=== PATIENT | male | born 1945 | race Caucasian/White ===

== ENCOUNTER → 2017-02-05 | Outpatient (CLI) | payer OTHER ==
[~2017-02-05] MED LIST: CHOL100010 PO; CMD5 PO; METO25TA56 PO
[2017-02-05 18:21] LABS: BLOOD UREA NITROGEN 18 mg/dl (7-18); BUN/CREATININE RATIO 18.7 (10-20); CALCIUM 8.8 mg/dl (8.5-10.1); CARBON DIOXIDE 29 mmol/L (21-32); CHLORIDE 105 mmol/L (98-107); CREATININE 0.96 mg/dl (0.60-1.40); GLUCOSE 91 mg/dl (70-99); POTASSIUM 4.2 mmol/L (3.5-5.1); SODIUM 140 mmol/L (136-145)
== END | disposition home or self-care (01) ==
LOC: C.LAB 16:52
PROVIDERS: ATTEND Internal Medicine Geriatric Medicine
DX: I10 Essential (primary) hypertension (principal)

== ENCOUNTER → 2018-03-01 | Outpatient (CLI) | payer OTHER ==
[2018-03-01 17:50] LABS: BLOOD UREA NITROGEN 17 mg/dl (7-18); CARBON DIOXIDE 28 mmol/L (21-32); CREATININE 0.96 mg/dl (0.60-1.40); GLUCOSE 98 mg/dl (70-99); POTASSIUM 3.7 mmol/L (3.5-5.1); SODIUM 140 mmol/L (136-145)
[2018-03-01 18:00] LABS: CHOLESTEROL 126 mg/dl (0-200); LDL CHOLESTEROL CALCULATED 51 mg/dl
== END | disposition home or self-care (01) ==
LOC: C.LAB 16:16
PROVIDERS: ATTEND Internal Medicine Geriatric Medicine
DX: I10 Essential (primary) hypertension (principal); N52.9 Male erectile dysfunction, unspecified; I48.0 Paroxysmal atrial fibrillation

== ENCOUNTER 2025-10-23 20:35 | Inpatient (IN) ==
[2025-10-23 21:53] LABS: Hematocrit (blood only) 38.2 % (42.0-52.0); Hemoglobin 13.0 g/dL (14.0-18.0); Immature Granulocytes # (auto) 0.02 K/uL (0.01-0.20); Immature Granulocytes % (auto) 0.3 %; Mean Corpuscular Hemoglobin 31.9 pg (25.0-34.0); Mean Corpuscular Volume 93.9 fL (80.0-100.0); Platelet Count 151 K/uL (130-400); RDW Standard Deviation 45.1 fL (36.4-46.3); Red Blood Count 4.07 M/uL (4.70-6.10); White Blood Count 5.83 K/ul (4.8-10.8)
[2025-10-23 22:02] LABS: Influenza A virus by PCR Negative (Neg); Influenza B virus by PCR Negative (Neg); SARS CoV2 RNA(COVID-19) Ceph POSITIVE (Negative)
[2025-10-23 22:06] LABS: Alanine Aminotransferase 28.0 U/L (7-52); Albumin Globulin Ratio 0.9 (0.9-2); Albumin Level 3.4 gm/dl (3.4-5.0); Alkaline Phosphatase 132.0 U/L (34-104); Anion Gap 8.0 (3-11); Bilirubin,Total 1.0 mg/dl (0.2-1.0); Blood Urea Nitrogen 24.0 mg/dl (6-23); Calcium 9.0 mg/dl (8.6-10.3); Carbon Dioxide 25.0 mmol/L (21-32); Chloride 108.0 mmol/L (98-107); Creatinine Clr Calc Pharmacy 100.1 ml/min; Globulin 3.7 gm/dl (2.5-4.0); Glucose 126.0 mg/dl (70-99(Fasting)); Potassium 3.6 mmol/L (3.5-5.1); Sodium 141.0 mmol/L (136-145); Total Protein 7.1 gm/dl (6.0-8.3)
--- NOTE | 2025-10-23 22:11 | Emergency Department Note ---
Impression & Plan Osteomyelitis Admission ED Provider Note HPI: History obtained from patient. The patient is a 80-year-old gentleman with history of neuropathy, atrial fibrillation on Eliquis, who presents the emergency department with a chief complaint of swelling and drainage from his right great toe. Patient states he first noticed this issue about 1 to 2 weeks ago. Patient states that the swelling and malodorous discharge from the wound was getting worse and therefore he went to urgent care today. Patient was advised to come to the emergency department to be assessed over the appearance of the toe and was recommended to have an x-ray performed. Patient also noted that he had some sinus congestion as well as a slight cough. On arrival here to the ED the patient is mildly tachycardic but otherwise hemodynamically stable, he appears to be in no acute distress. ROS: - Per HPI Differential Diagnosis: Gangrenous infection of the right great toe, foot cellulitis, necrotizing soft tissue infection, osteomyelitis, viral upper respiratory infection, pneumonia, amongst other potential pathologies. *Outpatient medications and allergy history reviewed. PE: General: Alert HEENT: Normocephalic, trachea midline Eyes: Extraocular eye movement is intact, no scleral erythema Pulmonary: Clear to auscultation bilaterally, no wheezing Cardio: Regular rate and rhythm GI: Abdomen is soft to palpation : No suprapubic tenderness MSK: Grossly swollen right great toe with plantar ulcer noted, area is malodorous with apparent fungal infection within the nailbed, mild edema with some erythema extending medially up the right foot, otherwise no evidence of any deformities or malformation of the extremities Skin: No evidence of rash Neuro: Alert, no focal deficits 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 Lab work shows no leukocytosis, hemoglobin is stable at 13.0, platelet count is normal, ESR is elevated at 40, CRP is elevated at 6.53, viral panel testing reveals that the patient is positive for COVID-19. Chest x-ray per my interpretation does not show any evidence of any focal infiltrate. X-ray imaging of the right foot does show evidence of osteomyelitis at the great toe. Patient has gangrenous appearance on exam and the toe is malodorous. I do feel he would benefit from admission for evaluation for possible debridement or amputation. I did discuss the patient's presentation with on-call orthopedics, Yuan Sullivan PA-C, and [facility] orthopedics was consulted. [facility] hospitalist service was consulted for admission and the patient was placed for admission in stable condition. Consultants/Discussions held with other healthcare providers: - Orthopedics, Dr. Minor/Yuan Sullivan PA-C - Hospitalist, Dr. Dickey Disposition discussion held by myself with: - Patient Diagnosis: 1. Right great toe osteomyelitis, acute 2. Right great toe infection, acute 3. History of neuropathy 4. Elevated CRP 5. Elevated ESR 6. COVID-19 infection, acute Disposition: Admission Osbaldo Javier DO Emergency Medicine Past Med/Surg History Problem List (Updated 10/23/25 @ 23:39 by Osbaldo Javier DO) Osteomyelitis (Acute) Hypertension Atrial fibrillation Anticoagulant long-term use Idiopathic polyneuropathy Gross hematuria Pre-diabetes Obesity, Class I, BMI 30-34.9 (Acute) Osteoarthritis (Chronic) Erectile dysfunction BPH (benign prostatic hyperplasia) Medical History Cervical radiculopathy CAP (community acquired pneumonia) Hematuria Hx of gout Osteoarthritis History of colon polyps Asthma BPPV (benign paroxysmal positional vertigo) [place] (hard of hearing) Peripheral neuropathy Thiamin deficiency Tubular adenoma of colon Paroxysmal atrial fibrillation Surgical History History of cataract surgery History of cardioversion (~10/2020) History of Achilles tendon repair History of colonoscopy Family History Sister Liver cancer Father Kidney stones Other No family history of adverse response to anesthesia Denies family history of Ovarian cancer Prostate cancer Myocardial infarction Breast cancer Colorectal cancer Social History Smoking Status: Never smoker Second Hand Exposure: No; Do You Dip or Chew Tobacco: No; Hx Alcohol Use: No Hx Substance Use: No Preferred Language: Arabic Communication Ability: Effective Visual Impairment: Partially Limited Hearing Ability: Use of Hearing Aid Billing Typist Required: No Beliefs That Will Affect Care: None marital status: Current Living Situation: Spouse Current Living Situation Comment: current occupational status: 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 How many Children do You have: 3 Feels Safe at Home: Yes Childhood Exposure to Second-Hand Smoke: Yes Diet: regular caffeine: No during the past year weight has: remained stable Dental Care, Regularly: Yes Physical Activity Frequency: Daily Seatbelt Use: always Sunscreen Use: No Assistive Devices: Glasses and Hearing Aid - Bilateral Allergies Allergies Allergy/AdvReac Type Severity Reaction Status Date / Time Sulfa (Sulfonamide Allergy Intermediate passed out Verified 10/05/25 08:45 Antibiotics) Home Meds Home Medications Medication Instructions Recorded Confirmed thiamine HCl (vitamin B1) 50 mg 75 mg PO QAM 06/03/21 10/23/25 tablet cyanocobalamin (vitamin B-12) 1,000 mcg PO QPM 10/23/25 10/23/25 1,000 mcg capsule Previous Rx's Medication Instructions Recorded nystatin-triamcinolone 100,000 1 applic topical BID PRN Rash #30 03/27/22 unit/g-0.1 % topical cream grams losartan 100 mg tablet 100 mg PO QPM #90 tabs 03/12/25 metoprolol tartrate 25 mg tablet 25 mg PO BID #180 tabs 03/12/25 apixaban 5 mg tablet (Eliquis) 5 mg PO BID #60 tabs 04/26/25 Results & Data (ED) Vital Signs Vital Signs - 24 hr 10/23/25 20:40 Temperature 36.7 C Temperature Source Oral Pulse Rate 110 H Respiratory Rate 18 Blood Pressure 145/95 H Blood Pressure Mean 111 Pulse Oximetry 100 Oxygen Delivery Method Room Air Sepsis Recent Fever Within 48 Hours No Sepsis New/Unexplained Change in Mental Status No Sepsis Action Taken by Nursing No Action Required Laboratory Data 10/23/25 21:15 10/23/25 21:15 Lab Results 10/23/25 Range/Units 21:15 WBC 5.83 (4.8-10.8) K/ul RBC 4.07 L (4.70-6.10) M/uL Hgb 13.0 L (14.0-18.0) g/dL Hct 38.2 L (42.0-52.0) % MCV 93.9 (80.0-100.0) fL MCH 31.9 (25.0-34.0) pg MCHC 34.0 (32.0-36.0) g/dL RDW Std Deviation 45.1 (36.4-46.3) fL RDW Coeff of Stacia 13.1 (11.5-14.5) % Plt Count 151 (130-400) K/uL MPV 9.4 (9.4-12.4) fL Immature Gran % (Auto) 0.3 % Neut % (Auto) 70.3 % Lymph % (Auto) 15.6 % [place] % (Auto) 12.3 % Eos % (Auto) 1.2 % Baso % (Auto) 0.3 % Neut # (Auto) 4.09 (1.40-6.50) K/uL Lymph # (Auto) 0.91 L (1.20-3.40) K/uL [place] # (Auto) 0.72 H (0.11-0.59) K/uL Eos # (Auto) 0.07 (0.00-0.50) K/uL Baso # (Auto) 0.02 (0.00-0.20) K/uL Immature Gran # (Auto) 0.02 (0.01-0.20) K/uL ESR 40 H (0-20) mm/hr Sodium 141 (136-145) mmol/L Potassium 3.6 (3.5-5.1) mmol/L Chloride 108 H (98-107) mmol/L Carbon Dioxide 25 (21-32) mmol/L Anion Gap 8 (3-11) BUN 24 H (6-23) mg/dl Creatinine 0.82 (0.6-1.4) mg/dl Est Cr Clr Drug Dosing 100.1 ml/min eGFR 89.91 BUN/Creatinine Ratio 29.3 H (10-20) Glucose 126 H (70-99(Fasting)) mg/dl Calcium 9.0 (8.6-10.3) mg/dl Total Bilirubin 1.0 (0.2-1.0) mg/dl AST 37 (13-39) U/L ALT 28 (7-52) U/L Alkaline Phosphatase 132 H (34-104) U/L C-Reactive Protein 6.53 H (0-0.5) mg/dl Total Protein 7.1 (6.0-8.3) gm/dl Albumin 3.4 (3.4-5.0) gm/dl Globulin 3.7 (2.5-4.0) gm/dl Albumin/Globulin Ratio 0.9 (0.9-2) SARS-CoV-2 (PCR) POSITIVE A (Negative) Influenza Type A (PCR) Negative (Neg) Influenza Type B (PCR) Negative (Neg) RSV (RT-PCR) Negative (Neg) Administered Medications Discontinued Medications Sodium Chloride (Nss) 500 mls @ 999 mls/hr IV .Q31M ONE Stop: 10/23/25 22:38 Last Admin: 10/23/25 22:59 Dose: 999 mls/hr Documented By: NATHALIA Piperacillin Sod/Tazobactam Sod (Zosyn) 4.5 gm in 100 mls @ 200 mls/hr IV NOW ONE; Protocol Stop: 10/23/25 22:43 Last Admin: 10/23/25 22:58 Dose: 200 mls/hr Documented By: NATHALIA Imaging Data Radiologist's Impression: Foot X-Ray 10/23/25 21:01 Exam(s): XR RIGHT FOOT, 3+ views EXAM: XR Right Foot Complete, 3 or More Views CLINICAL HISTORY: Reason for exam: infection, osteomylitis?. TECHNIQUE: Frontal, lateral and oblique views of the right foot. COMPARISON: No relevant prior studies available. FINDINGS: Bones/joints: Erosive and destructive changes involving the 1st distal phalanx. No acute fracture. No dislocation. Soft tissues: Unremarkable. No radiopaque foreign body. IMPRESSION: Osteomyelitis of the 1st distal phalanx. Electronically signed by: Yuan Rahman MD 10/23/25 22:47 PM Discharge Plan Visit Data Chief Complaint: Toe Injury/Pain Stated Complaint: ABRASION RT BIG TOE, INJURED IT ~1 WK AGO, INFXN ED Provider: Osbaldo Javier Discharge Problem: Osteomyelitis Patient Disposition: Admitted As Inpatient Condition: Fair Forms Stand Alone Forms: [facility] Prescriptions Prescriptions: No Action thiamine HCl (vitamin B1) 50 mg tablet 75 mg PO QAM metoprolol tartrate 25 mg tablet 25 mg PO BID Qty: 180 3RF losartan 100 mg tablet 100 mg PO QPM Qty: 90 3RF nystatin-triamcinolone 100,000-0.1 unit/g-% cream 1 applic topical BID PRN (Reason: Rash) Qty: 30 0RF Eliquis 5 mg tablet 5 mg PO BID Qty: 60 5RF cyanocobalamin (vitamin B-12) 1,000 mcg capsule 1,000 mcg PO QPM Referrals Referrals: Joe Young DO [Primary Care Provider] - Discharge Problem: Osteomyelitis Qualifiers: Osteomyelitis type: unspecified type Osteomyelitis location: foot Laterality: r ight Qualified Code(s): M86.9 - Osteomyelitis, unspecified
[2025-10-23] MEDS ORDERED: VANCOMYCIN CONSULT ACTIVE PRN (22:14)
--- NOTE | 2025-10-23 22:48 | XRay Report ---
Exam(s): XR RIGHT FOOT, 3+ views EXAM: XR Right Foot Complete, 3 or More Views CLINICAL HISTORY: Reason for exam: infection, osteomylitis?. TECHNIQUE: Frontal, lateral and oblique views of the right foot. COMPARISON: No relevant prior studies available. FINDINGS: Bones/joints: Erosive and destructive changes involving the 1st distal phalanx. No acute fracture. No dislocation. Soft tissues: Unremarkable. No radiopaque foreign body. IMPRESSION: Osteomyelitis of the 1st distal phalanx. Electronically signed by: Yuan Rahman MD 10/23/25 22:47 PM
[2025-10-23] MEDS: PIPERACILLIN/TAZOBACTAM 4.5 GM/100 ML BAG IV ONE (22:58)
[2025-10-23] MEDS: SODIUM CHLORIDE 0.9% 500 ML IV ONE (22:59)
--- NOTE | 2025-10-23 23:47 | History & Physical Report ---
Date of Service October 23, 2025 Assessment & Plan (1) Osteomyelitis of great toe of right foot: (2) Atrial fibrillation: (3) Anticoagulant long-term use: (4) COVID-19 virus infection: Plan The patient is a 80-year-old male with a past medical history including atrial fibrillation, long-term anticoagulant use, idiopathic polyneuropathy, prediabetes, obesity, BPH with LUTS, and hypertension. He presents to the emergency department with complaint of swelling and drainage from his right great toe. He has idiopathic polyneuropathy, and thinks he may have bumped his toe 1 to 2 weeks ago. Since that time it was gradually getting worse with increased swelling, and drainage became malodorous. He went to urgent care on 10/23 for assessment of his toe, but also with complaint of URI type symptoms, cough, nasal congestion, chills, nausea and lethargy that have developed over past few days. He was then referred to the emergency department at [facility]. Workup in the emergency department includes volume normal laboratories: ESR 40, CRP 6.53, glucose 126, COVID-positive. He is influenza and RSV negative. X-ray of right foot is consistent with a first distal phalanx osteomyelitis. Chest x-ray shows cardiomegaly. From the emergency department patient received vancomycin IV, Zosyn IV and normal saline 500 mL bolus. He was then referred for evaluation for admission to the [facility] hospitalist service. Osteomyelitis of distal phalanx of right great toe/cellulitis of dorsum of right foot- Abnormal x-ray as noted Continue vancomycin IV and Zosyn IV begun in the ED Consult podiatry Discussed with patient options of long-term antibiotics versus possible need for surgery. If he opts for long-term IV antibiotics, he will need to have a PICC line placed Of note he is planning on leaving for [place] in a few weeks, for 18 days. He did have lower extremity arterial Dopplers performed on 05/13/2022, which was normal. Order lower extremity arterial Dopplers bilaterally. Order right lower extremity venous Doppler, due to asymmetric swelling. Follow-up blood cultures Atrial fibrillation/hypertension On chronic anticoagulation with apixaban. Will hold the morning dose, until it is clarified whether he will have a potential procedure or not. Continue losartan and metoprolol tartrate Lopressor 5 mg IV x 1 given at 5:00 AM Idiopathic polyneuropathy- Continue thiamine Needs to wear appropriate foot protection at all times History of gout- Add uric acid level to labs History of Present Illness Primary Care Provider: Joe Young DO The patient is a 80-year-old male with a past medical history including atrial fibrillation, long-term anticoagulant use, idiopathic polyneuropathy, prediabetes, obesity, BPH with LUTS, and hypertension. He presents to the emergency department with complaint of swelling and drainage from his right great toe. He has idiopathic polyneuropathy, and thinks he may have bumped his toe 1 to 2 weeks ago. Since that time it was gradually getting worse with increased swelling, and drainage became malodorous. He went to urgent care on 10/23 for assessment of his toe, but also with complaint of URI type symptoms, cough, nasal congestion, chills, nausea and lethargy that have developed over the past few days. He was then referred to the emergency department at [facility]. Workup in the emergency department includes volume normal laboratories: ESR 40, CRP 6.53, glucose 126, COVID-positive. He is influenza and RSV negative. X-ray of right foot is consistent with a first distal phalanx osteomyelitis. Chest x-ray shows cardiomegaly. From the emergency department patient received vancomycin IV, Zosyn IV and normal saline 500 mL bolus. He was then referred for evaluation for admission to the [facility] hospitalist service. Allergies Allergy/AdvReac Type Severity Reaction Status Date / Time Sulfa (Sulfonamide Allergy Intermediate passed out Verified 10/05/25 08:45 Antibiotics) Home Medications Medication Instructions Recorded Confirmed Type thiamine HCl (vitamin B1) 50 mg 75 mg PO QAM 06/03/21 10/23/25 History tablet nystatin-triamcinolone 100,000 1 applic topical BID PRN Rash #30 03/27/22 10/23/25 Rx unit/g-0.1 % topical cream grams losartan 100 mg tablet 100 mg PO QPM #90 tabs 03/12/25 10/23/25 Rx metoprolol tartrate 25 mg tablet 25 mg PO BID #180 tabs 03/12/25 10/23/25 Rx apixaban 5 mg tablet (Eliquis) 5 mg PO BID #60 tabs 04/26/25 10/23/25 Rx cyanocobalamin (vitamin B-12) 1,000 mcg PO QPM 10/23/25 10/23/25 History 1,000 mcg capsule Past Med/Surg History Problem List (Updated 10/24/25 @ 05:45 by Mickey Dickey MD) COVID-19 virus infection Cellulitis of right foot Osteomyelitis of great toe of right foot Osteomyelitis (Acute) Hypertension Atrial fibrillation Anticoagulant long-term use Idiopathic polyneuropathy Gross hematuria Pre-diabetes Obesity, Class I, BMI 30-34.9 (Acute) Osteoarthritis (Chronic) Erectile dysfunction BPH (benign prostatic hyperplasia) Medical History Cervical radiculopathy CAP (community acquired pneumonia) Hematuria Hx of gout Osteoarthritis History of colon polyps Asthma BPPV (benign paroxysmal positional vertigo) [place] (hard of hearing) Peripheral neuropathy Thiamin deficiency Tubular adenoma of colon Paroxysmal atrial fibrillation Surgical History History of cataract surgery History of cardioversion (~10/2020) History of Achilles tendon repair History of colonoscopy Family History Sister Liver cancer Father Kidney stones Other No family history of adverse response to anesthesia Denies family history of Ovarian cancer Prostate cancer Myocardial infarction Breast cancer Colorectal cancer Social History Smoking Status: Never smoker Second Hand Exposure: No; Do You Dip or Chew Tobacco: No; Hx Alcohol Use: No Hx Substance Use: No Preferred Language: [place] Citizen Communication Ability: Effective Visual Impairment: Partially Limited Hearing Ability: Use of Hearing Aid Inspector Experimental Assembly Required: No Beliefs That Will Affect Care: None marital status: Current Living Situation: Spouse Current Living Situation Comment: current occupational status: 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 How many Children do You have: 3 Feels Safe at Home: Yes Childhood Exposure to Second-Hand Smoke: Yes Diet: regular caffeine: No during the past year weight has: remained stable Dental Care, Regularly: Yes Physical Activity Frequency: Daily Seatbelt Use: always Sunscreen Use: No Assistive Devices: Glasses and Hearing Aid - Bilateral Review of Systems Review of Systems: The patient denies chest pain, palpitations, lower extremity swelling, nausea, vomiting, diarrhea , constipation, abdominal pain, pelvic pain, blood in urine or stool, dysuria, urinary frequency or urgency, lightheadedness, dizziness, headache, memory loss, loss of consciousness, rash, abnormal bruising or bleeding, imbalance, focal -weakness, numbness or tingling in arms or left leg, back or neck pain, or night sweats. The review of systems is otherwise negative other than for that already noted above, and at least 10 systems have been reviewed. Physical Exam Physical Exam: The patient is awake, alert and oriented 3, well developed and well nourished, normocephalic and atraumatic, lying in bed and in no acute distress. HEENT--PERRL, EOMI, mucous membranes and oropharynx dry. Neck--supple. No JVD. No bruits. Thyroid normal, trachea midline, no adenopathy. Heart--normal S1 and S2. No murmurs, rubs or gallops. Lungs--clear bilaterally, no respiratory distress, no accessory muscle use. Abdomen--normal bowel sounds and soft. Nontender. Nondistended, no hernias or masses, no organomegaly. Extremities--trace to 1+ pitting edema right lower extremity. right great toe ulceration distal phalanx. Dorsum of right foot with mild erythema and warmth. There are good distal pulses b/l. Dermatologic--normal skin turgor, RLE as above Neurologic--cranial nerves II through XII grossly intact. Rheumatologic--normal range of motion, except for right foot Psychiatric--normal affect. Results & Data Results & Data Vital Signs (Past 12 Hours) Vital Signs Temp Pulse Resp BP Pulse Ox O2 Del Method 10/23/25 20:40 36.7 C 110 H 18 145/95 H 100 Room Air Laboratory Results Laboratory Results WBC 5.83 K/ul (4.8-10.8) 10/23/25 21:15 RBC 4.07 M/uL (4.70-6.10) L 10/23/25 21:15 Hgb 13.0 g/dL (14.0-18.0) L 10/23/25 21:15 Hct 38.2 % (42.0-52.0) L 10/23/25 21:15 MCV 93.9 fL (80.0-100.0) 10/23/25 21:15 MCH 31.9 pg (25.0-34.0) 10/23/25 21:15 MCHC 34.0 g/dL (32.0-36.0) 10/23/25 21:15 RDW Std Deviation 45.1 fL (36.4-46.3) 10/23/25 21:15 RDW Coeff of Stacia 13.1 % (11.5-14.5) 10/23/25 21:15 Plt Count 151 K/uL (130-400) 10/23/25 21:15 MPV 9.4 fL (9.4-12.4) 10/23/25 21:15 Immature Gran % (Auto) 0.3 % 10/23/25 21:15 Neut % (Auto) 70.3 % 10/23/25 21:15 Lymph % (Auto) 15.6 % 10/23/25 21:15 [place] % (Auto) 12.3 % 10/23/25 21:15 Eos % (Auto) 1.2 % 10/23/25 21:15 Baso % (Auto) 0.3 % 10/23/25 21:15 Neut # (Auto) 4.09 K/uL (1.40-6.50) 10/23/25 21:15 Lymph # (Auto) 0.91 K/uL (1.20-3.40) L 10/23/25 21:15 [place] # (Auto) 0.72 K/uL (0.11-0.59) H 10/23/25 21:15 Eos # (Auto) 0.07 K/uL (0.00-0.50) 10/23/25 21:15 Baso # (Auto) 0.02 K/uL (0.00-0.20) 10/23/25 21:15 Immature Gran # (Auto) 0.02 K/uL (0.01-0.20) 10/23/25 21:15 ESR 40 mm/hr (0-20) H 10/23/25 21:15 Sodium 141 mmol/L (136-145) 10/23/25 21:15 Potassium 3.6 mmol/L (3.5-5.1) 10/23/25 21:15 Chloride 108 mmol/L (98-107) H 10/23/25 21:15 Carbon Dioxide 25 mmol/L (21-32) 10/23/25 21:15 Anion Gap 8 (3-11) 10/23/25 21:15 BUN 24 mg/dl (6-23) H 10/23/25 21:15 Creatinine 0.82 mg/dl (0.6-1.4) 10/23/25 21:15 Est Cr Clr Drug Dosing 100.1 ml/min 10/23/25 21:15 eGFR 89.91 10/23/25 21:15 BUN/Creatinine Ratio 29.3 (10-20) H 10/23/25 21:15 Glucose 126 mg/dl (70-99(Fasting)) H 10/23/25 21:15 Calcium 9.0 mg/dl (8.6-10.3) 10/23/25 21:15 Total Bilirubin 1.0 mg/dl (0.2-1.0) 10/23/25 21:15 AST 37 U/L (13-39) 10/23/25 21:15 ALT 28 U/L (7-52) 10/23/25 21:15 Alkaline Phosphatase 132 U/L (34-104) H 10/23/25 21:15 C-Reactive Protein 6.53 mg/dl (0-0.5) H 10/23/25 21:15 Total Protein 7.1 gm/dl (6.0-8.3) 10/23/25 21:15 Albumin 3.4 gm/dl (3.4-5.0) 10/23/25 21:15 Globulin 3.7 gm/dl (2.5-4.0) 10/23/25 21:15 Albumin/Globulin Ratio 0.9 (0.9-2) 10/23/25 21:15 SARS-CoV-2 (PCR) POSITIVE (Negative) A 10/23/25 21:15 Influenza Type A (PCR) Negative (Neg) 10/23/25 21:15 Influenza Type B (PCR) Negative (Neg) 10/23/25 21:15 RSV (RT-PCR) Negative (Neg) 10/23/25 21:15 Impressions Foot X-Ray 10/23/25 21:01 Exam(s): XR RIGHT FOOT, 3+ views EXAM: XR Right Foot Complete, 3 or More Views CLINICAL HISTORY: Reason for exam: infection, osteomylitis?. TECHNIQUE: Frontal, lateral and oblique views of the right foot. COMPARISON: No relevant prior studies available. FINDINGS: Bones/joints: Erosive and destructive changes involving the 1st distal phalanx. No acute fracture. No dislocation. Soft tissues: Unremarkable. No radiopaque foreign body. IMPRESSION: Osteomyelitis of the 1st distal phalanx. Electronically signed by: Yuan Rahman MD 10/23/25 22:47 PM Chest X-Ray 10/23/25 22:11 Exam(s): XR CXR 1 VIEW EXAM: XR Chest, 1 View CLINICAL HISTORY: Reason for exam: cough. TECHNIQUE: Frontal view of the chest. COMPARISON: 01/31/2016 FINDINGS: Lungs: Unremarkable. No consolidation. Pleural space: Unremarkable. No pneumothorax. Heart: Unremarkable. No cardiomegaly. Mediastinum: Unremarkable. Normal mediastinal contour. Bones/joints: Unremarkable. No acute fracture. IMPRESSION: Normal chest x-ray. Electronically signed by: Yuan Rahman MD 10/24/25 00:10 AM Code Status & VTE Plan Code Status Laboratory Results WBC 5.83 K/ul (4.8-10.8) 10/23/25 21:15 RBC 4.07 M/uL (4.70-6.10) L 10/23/25 21:15 Hgb 13.0 g/dL (14.0-18.0) L 10/23/25 21:15 Hct 38.2 % (42.0-52.0) L 10/23/25 21:15 MCV 93.9 fL (80.0-100.0) 10/23/25 21:15 MCH 31.9 pg (25.0-34.0) 10/23/25 21:15 MCHC 34.0 g/dL (32.0-36.0) 10/23/25 21:15 RDW Std Deviation 45.1 fL (36.4-46.3) 10/23/25 21:15 RDW Coeff of Stacia 13.1 % (11.5-14.5) 10/23/25 21:15 Plt Count 151 K/uL (130-400) 10/23/25 21:15 MPV 9.4 fL (9.4-12.4) 10/23/25 21:15 Immature Gran % (Auto) 0.3 % 10/23/25 21:15 Neut % (Auto) 70.3 % 10/23/25 21:15 Lymph % (Auto) 15.6 % 10/23/25 21:15 [place] % (Auto) 12.3 % 10/23/25 21:15 Eos % (Auto) 1.2 % 10/23/25 21:15 Baso % (Auto) 0.3 % 10/23/25 21:15 Neut # (Auto) 4.09 K/uL (1.40-6.50) 10/23/25 21:15 Lymph # (Auto) 0.91 K/uL (1.20-3.40) L 10/23/25 21:15 [place] # (Auto) 0.72 K/uL (0.11-0.59) H 10/23/25 21:15 Eos # (Auto) 0.07 K/uL (0.00-0.50) 10/23/25 21:15 Baso # (Auto) 0.02 K/uL (0.00-0.20) 10/23/25 21:15 Immature Gran # (Auto) 0.02 K/uL (0.01-0.20) 10/23/25 21:15 ESR 40 mm/hr (0-20) H 10/23/25 21:15 Sodium 141 mmol/L (136-145) 10/23/25 21:15 Potassium 3.6 mmol/L (3.5-5.1) 10/23/25 21:15 Chloride 108 mmol/L (98-107) H 10/23/25 21:15 Carbon Dioxide 25 mmol/L (21-32) 10/23/25 21:15 Anion Gap 8 (3-11) 10/23/25 21:15 BUN 24 mg/dl (6-23) H 10/23/25 21:15 Creatinine 0.82 mg/dl (0.6-1.4) 10/23/25 21:15 Est Cr Clr Drug Dosing 100.1 ml/min 10/23/25 21:15 eGFR 89.91 10/23/25 21:15 BUN/Creatinine Ratio 29.3 (10-20) H 10/23/25 21:15 Glucose 126 mg/dl (70-99(Fasting)) H 10/23/25 21:15 Calcium 9.0 mg/dl (8.6-10.3) 10/23/25 21:15 Total Bilirubin 1.0 mg/dl (0.2-1.0) 10/23/25 21:15 AST 37 U/L (13-39) 10/23/25 21:15 ALT 28 U/L (7-52) 10/23/25 21:15 Alkaline Phosphatase 132 U/L (34-104) H 10/23/25 21:15 C-Reactive Protein 6.53 mg/dl (0-0.5) H 10/23/25 21:15 Total Protein 7.1 gm/dl (6.0-8.3) 10/23/25 21:15 Albumin 3.4 gm/dl (3.4-5.0) 10/23/25 21:15 Globulin 3.7 gm/dl (2.5-4.0) 10/23/25 21:15 Albumin/Globulin Ratio 0.9 (0.9-2) 10/23/25 21:15 SARS-CoV-2 (PCR) POSITIVE (Negative) A 10/23/25 21:15 Influenza Type A (PCR) Negative (Neg) 10/23/25 21:15 Influenza Type B (PCR) Negative (Neg) 10/23/25 21:15 RSV (RT-PCR) Negative (Neg) 10/23/25 21:15 Impressions Foot X-Ray 10/23/25 21:01 Exam(s): XR RIGHT FOOT, 3+ views EXAM: XR Right Foot Complete, 3 or More Views CLINICAL HISTORY: Reason for exam: infection, osteomylitis?. TECHNIQUE: Frontal, lateral and oblique views of the right foot. COMPARISON: No relevant prior studies available. FINDINGS: Bones/joints: Erosive and destructive changes involving the 1st distal phalanx. No acute fracture. No dislocation. Soft tissues: Unremarkable. No radiopaque foreign body. IMPRESSION: Osteomyelitis of the 1st distal phalanx. Electronically signed by: Yuan Rahman MD 10/23/25 22:47 PM Chest X-Ray 10/23/25 22:11 Exam(s): XR CXR 1 VIEW EXAM: XR Chest, 1 View CLINICAL HISTORY: Reason for exam: cough. TECHNIQUE: Frontal view of the chest. COMPARISON: 01/31/2016 FINDINGS: Lungs: Unremarkable. No consolidation. Pleural space: Unremarkable. No pneumothorax. Heart: Unremarkable. No cardiomegaly. Mediastinum: Unremarkable. Normal mediastinal contour. Bones/joints: Unremarkable. No acute fracture. IMPRESSION: Normal chest x-ray. Electronically signed by: Yuan Rahman MD 10/24/25 00:10 AM VTE Prophylaxis Plan VTE Prophylaxis will be ordered: Yes PG Care Time/CCT Total # of Minutes Spent Total Time Spent with Patient: Total time spent is greater than 50% in coordination of care (as documented) at patient's floor/unit and/or counseling patient: Coding Level of Care Code 00726 INT INP/OBS CARE MIN Diagnoses Osteomyelitis of great toe of right foot M86.9 Permanent atrial fibrillation I48.21 Atrial fibrillation type: permanent Anticoagulant long-term use Z79.01 COVID-19 virus infection U07.1 (2) Atrial fibrillation Atrial fibrillation type: permanent Qualified Code(s): I48.21 - Permanent atrial fibrillation
--- NOTE | 2025-10-24 00:12 | XRay Report ---
Exam(s): XR CXR 1 VIEW EXAM: XR Chest, 1 View CLINICAL HISTORY: Reason for exam: cough. TECHNIQUE: Frontal view of the chest. COMPARISON: 01/31/2016 FINDINGS: Lungs: Unremarkable. No consolidation. Pleural space: Unremarkable. No pneumothorax. Heart: Unremarkable. No cardiomegaly. Mediastinum: Unremarkable. Normal mediastinal contour. Bones/joints: Unremarkable. No acute fracture. IMPRESSION: Normal chest x-ray. Electronically signed by: Yuan Rahman MD 10/24/25 00:10 AM
[2025-10-24] MEDS: VANCOMYCIN HCL 2,250 MG in SODIUM CHLORIDE 0.9% 500 ML IV ONE (00:14)
[2025-10-24] MEDS ORDERED: VANCOMYCIN CONSULT ACTIVE PRN (00:19)
[2025-10-24] MEDS: ACETAMINOPHEN 325 MG TAB PO PRN (01:13)
[2025-10-24] MEDS: PIPERACILLIN/TAZOBACTAM 4.5 GM/100 ML BAG IV SCH (04:52)
[2025-10-24 05:41] LABS: Creatinine Clr Calc Pharmacy 105.2 ml/min
[2025-10-24 06:04] LABS: Uric Acid 4.1 mg/dl (2.6-7.2)
[2025-10-24] MEDS: METOPROLOL TARTRATE 1 MG/ML VIAL IV STA (06:16)
[2025-10-24] MEDS: APIXABAN 5 MG TABLET PO SCH (08:09)
[2025-10-24] MEDS: THIAMINE HCL 50 MG TABLET PO SCH (08:10)
[2025-10-24] MEDS: METOPROLOL TARTRATE 25 MG TAB PO SCH (08:10)
--- NOTE | 2025-10-24 09:44 | Podiatry Consultation ---
Date of Consultation October 24, 2025 Assessment & Plan (1) Osteomyelitis of great toe of right foot: (2) Cellulitis of right foot: Plan - Plain film radiograph right foot with concern for osteomyelitis of the distal phalanx of the great toe. - Noninvasive vascular arterial studies showing patent vessels to the right lower extremity without signs of stenosis or occlusion. Normal ABIs. - Blood culture 10/23/2025: Pending - Wound culture right hallux collected at bedside 10/24/2025: Pending - Continues on IV vancomycin and Zosyn - Order: CAM Walker orthotics referral. Patient okay to weight-bear as tolerated in cam boot to the right foot. Lengthy discussion with patient and his regarding treatment options given significant soft tissue and bone infection to the right hallux. Recommendation for staged amputation. Plan for amputation right hallux 10/25/2025. This will be a staged procedure with likely return to the OR 10/29/2025 plan for delayed primary closure of amputation site. History of Present Illness Reason for Consultation: osteomyelitis right great toe Attending Physician: Wally Mohan MD History of Present Illness 80-year-old male resting comfortably in hospital bed with present at bedside in the emergency room at time of evaluation today. Past medical history significant for idiopathic peripheral neuropathy, atrial fibrillation, obesity, BPH, hypertension. Most recent hemoglobin A1c 07/02/2025 6.0. Presented to the emergency department today with concern for ongoing respiratory infection as well as a right great toe wound did not improved over the past week. Reports idiopathic peripheral neuropathy in the bilateral lower extremity for the past several years. Plain film radiographs in the emergency department consistent with osteomyelitis of the distal phalanx of the right hallux. He discussed long-term IV antibiotics and wound care versus amputation with the emergency room provider and initially opted for long-term IV antibiotic therapy. On evaluation of the hallux today there is significant soft tissue infection and necrosis of tissue to the distal half of the toe with open wound abscess and exposed bone which is fragmented. I have recommended amputation of the digit as a staged procedure and attempt to eradicate infection and proceed with much of the digit and foot as possible. Patient is in agreement with recommendation and all questions were answered. Allergies Allergy/AdvReac Type Severity Reaction Status Date / Time Sulfa (Sulfonamide Allergy Intermediate passed out Verified 10/05/25 08:45 Antibiotics) Home Medications Medication Instructions Recorded Confirmed Type thiamine HCl (vitamin B1) 50 mg 75 mg PO QAM 06/03/21 10/23/25 History tablet nystatin-triamcinolone 100,000 1 applic topical BID PRN Rash #30 03/27/22 10/23/25 Rx unit/g-0.1 % topical cream grams losartan 100 mg tablet 100 mg PO QPM #90 tabs 03/12/25 10/23/25 Rx metoprolol tartrate 25 mg tablet 25 mg PO BID #180 tabs 03/12/25 10/23/25 Rx apixaban 5 mg tablet (Eliquis) 5 mg PO BID #60 tabs 04/26/25 10/23/25 Rx cyanocobalamin (vitamin B-12) 1,000 mcg PO QPM 10/23/25 10/23/25 History 1,000 mcg capsule Patient History Medical History Cervical radiculopathy CAP (community acquired pneumonia) Hematuria Hx of gout Osteoarthritis History of colon polyps Asthma BPPV (benign paroxysmal positional vertigo) [place] (hard of hearing) Peripheral neuropathy Thiamin deficiency Tubular adenoma of colon Paroxysmal atrial fibrillation Surgical History History of cataract surgery History of cardioversion (~10/2020) History of Achilles tendon repair History of colonoscopy Family History Sister Liver cancer Father Kidney stones Other No family history of adverse response to anesthesia Denies family history of Ovarian cancer Prostate cancer Myocardial infarction Breast cancer Colorectal cancer Social History Smoking Status: Never smoker Second Hand Exposure: No; Do You Dip or Chew Tobacco: No; Hx Alcohol Use: No Hx Substance Use: No Preferred Language: French Communication Ability: Effective Visual Impairment: Partially Limited Hearing Ability: Use of Hearing Aid Strategy Analyst Required: No Beliefs That Will Affect Care: None marital status: Current Living Situation: Spouse Current Living Situation Comment: current occupational status: 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 Reports cough, congestion, chills, nausea and fatigue. Denies pain in the right foot. Physical Exam Physical Exam: Const: Appears well developed and well nourished. No signs of acute distress present. CV: Extremities: No cyanosis Capillary refill time is less than 2 seconds all digits of the bilateral foot. Posterior tibial and dorsalis pedis pulses are palpable bilateral. Neuro: Loss of protective sensation bilateral foot and ankle Psych: Mood/Affect: Mood is normal. Affect is normal. Cognition: Orientation is intact to person, place and time. Focused lower extremity musculoskeletal exam: Erythema and edema to the right lower extremity starting at the mid leg and extending to the right hallux. Significant edema and erythema to the right hallux with notable malodor on removal of dressing. Seropurulent drainage from distal hallux wound noted. Wound probes to fragmented bone of the distal phalanx. Circumferential sloughing of the skin to the hallux and avulsion of the nail. No crepitus on palpation of surrounding soft tissues. No pain with probing of the wound. Results & Data Vital Signs (Past 12 Hours) Vital Signs Temp Pulse Pulse Resp BP Pulse Ox Pulse Ox 10/24/25 07:27 97 H 20 108/89 95 10/24/25 05:43 70 16 132/82 96 10/24/25 00:51 37.7 C H 106 H 17 153/116 H 99 10/24/25 00:51 99 10/24/25 00:26 109 H 10/24/25 00:15 120 H 14 144/118 H 100 O2 Del Method O2 Del Method 10/24/25 07:27 Room Air 10/24/25 05:43 Room Air 10/24/25 00:51 Room Air 10/24/25 00:51 Room Air 10/24/25 00:26 10/24/25 00:15 Room Air Laboratory Results WBC 5.83 ESR 40 CRP 6.53 Hemoglobin A1c 6.0 Diagnostic Findings X-ray right foot 3 views 10/23/2025 IMPRESSION: Osteomyelitis of the 1st distal phalanx. BILATERAL LOWER EXTREMITY ARTERIAL DOPPLER ULTRASOUND -10/24/2025 FINDINGS: The right ankle-brachial index measured 1.28 when using posterior tibial artery and 1.32 when using the dorsalis pedis. The left ankle-brachial index measured 1.23 when using posterior tibial artery and 1.13 when using the dorsalis pedis. Triphasic waveforms throughout the bilateral common femoral, profunda, superficial femoral, popliteal, anterior tibial, dorsalis pedis, posterior tibial and peroneal arteries were noted. No elevated velocities were identified. No vessel occlusion was identified. IMPRESSION: 1. Unremarkable bilateral lower extremity arterial Doppler ultrasound. Patent vessels. No evidence for a hemodynamically significant stenosis. 2. Normal bilateral ankle to brachial indices. PG Care Time/CCT Total # of Minutes Spent Total Time Spent with Patient: Total time spent is greater than 50% in coordination of care (as documented) at patient's floor/unit and/or counseling patient: Coding Level of Care Code 82277 OP VST NEW MOD 45 MIN Diagnoses Osteomyelitis of great toe of right foot M86.9 Cellulitis of right foot L03.115
[2025-10-24] MEDS: VANCOMYCIN HCL 750 MG in SODIUM CHLORIDE 0.9% 250 ML IV SCH (09:55)
--- NOTE | 2025-10-24 10:08 | Ultrasound Report ---
RIGHT LOWER EXTREMITY VENOUS DOPPLER CLINICAL HISTORY: Right lower extremity edema. COMPARISON STUDY: Right lower extremity venous Doppler ultrasound April 06, 2019. TECHNIQUE: Sonography of the deep venous system of the right lower extremity was performed. Compress ion and augmentation were evaluated. FINDINGS: The right common femoral, superficial femoral and popliteal veins were compressible. Augme ntation was normal. Flow was shown within the deep calf vessels. There is an elongated right poplitea l cystic focus which measures 5.6 x 1.5 x 4.1 cm. This is mildly complex. This contains no color flow . IMPRESSION: 1. No evidence of deep venous thrombus within the right lower extremity. 2. 5.6 x 1.5 x 4.1 cm suspected right popliteal cyst. ACT 112: Negative or not required by law. Electronically signed by: Tk Sanderson M.D. 10/24/2025 10:07 AM
--- NOTE | 2025-10-24 10:22 | Ultrasound Report ---
BILATERAL LOWER EXTREMITY ARTERIAL DOPPLER ULTRASOUND CLINICAL HISTORY: Right great toe osteomyelitis. COMPARISON STUDY: No previous studies for comparison. TECHNIQUE: Grayscale, color and duplex Doppler sonography of the arterial systems of both lower extre mities was performed. Ankle to brachial indices were obtained. FINDINGS: The right ankle-brachial index measured 1.28 when using posterior tibial artery and 1.32 wh en using the dorsalis pedis. The left ankle-brachial index measured 1.23 when using posterior tibial artery and 1.13 when using the dorsalis pedis. Triphasic waveforms throughout the bilateral common fe moral, profunda, superficial femoral, popliteal, anterior tibial, dorsalis pedis, posterior tibial an d peroneal arteries were noted. No elevated velocities were identified. No vessel occlusion was ident ified. IMPRESSION: 1. Unremarkable bilateral lower extremity arterial Doppler ultrasound. Patent vessels. No evidence fo r a hemodynamically significant stenosis. 2. Normal bilateral ankle to brachial indices. ACT 112: Negative or not required by law. Electronically signed by: Tk Sanderson M.D. 10/24/2025 10:21 AM
--- NOTE | 2025-10-24 14:13 | Pharmacy Report ---
Pharmacy PK ABX Note - Date of Service October 24, 2025 - Assessment and Plan Assessment 80 year old M receiving vancomycin/zosyn for treatment of great toe osteomyelitis. Pertinent microbiologic data includes: Blood cultures pending. Podiatry consulted and plan for amputation right hallux 10/25/2025 with likely return to the OR 10/29/2025 plan for delayed primary closure of amputation site. Plan Vancomycin * Loading dose: 2250 mg IV x 1 * Maintenance dose: 750 mg IV every 8 hours * Regimen is predicted to achieve target AUC/SETH of 400-600 mg/L.hr * Trough level ordered for 10/25 @ 0730 Pharmacy will continue to follow and will adjust dose/frequency as necessary. Thank you. Pharmacy has transitioned to AUC monitoring for vancomycin. AUC/SETH is the preferred PK/PD target and is associated with decreased risk of nephrotoxicity compared to traditional trough targets.
--- NOTE | 2025-10-24 17:40 | Hospitalist Progress Note ---
Date of Service October 24, 2025 Assessment & Plan (1) Osteomyelitis of great toe of right foot: (2) Atrial fibrillation: (3) Anticoagulant long-term use: (4) COVID-19 virus infection: Plan The patient is a 80-year-old male with a past medical history including atrial fibrillation, long-term anticoagulant use, idiopathic polyneuropathy, prediabetes, obesity, BPH with LUTS, and hypertension. He presents to the emergency department with complaint of swelling and drainage from his right great toe. He has idiopathic polyneuropathy, and thinks he may have bumped his toe 1 to 2 weeks ago. Since that time it was gradually getting worse with increased swelling, and drainage became malodorous. He went to urgent care on 10/23 for assessment of his toe, but also with complaint of URI type symptoms, cough, nasal congestion, chills, nausea and lethargy that have developed over t he past few days. He was then referred to the emergency department at [facility]. Workup in the emergency department includes volume normal laboratories: ESR 40, CRP 6.53, glucose 126, COVID-positive. He is influenza and RSV negative. X-ray of right foot is consistent with a first distal phalanx osteomyelitis. Chest x-ray shows cardiomegaly. From the emergency department patient received vancomycin IV, Zosyn IV and normal saline 500 mL bolus. He was then referred for evaluation for admission to the [facility] hospitalist service. Osteomyelitis of distal phalanx of right great toe/cellulitis of dorsum of right foot- Abnormal x-ray as noted Continue vancomycin IV and Zosyn IV begun in the ED No significant stenosis on arterial doppler Consult podiatry - planning on amputation tomorrow, NPO after midnight, Eliquis placed on hold Follow up wound and blood cultures Atrial fibrillation/hypertension On chronic anticoagulation with apixaban - holding for surgery Continue losartan and metoprolol tartrate Lopressor 5 mg IV x 1 given at 5:00 AM Idiopathic polyneuropathy- Continue thiamine Needs to wear appropriate foot protection at all times History of gout- Uric acid level normal COVID-19 Symptomatic but mild symptoms VTE Prophylaxis - Eliquis on hold for operation Disposition - continue on PCU Admission and Anticipated Discharge Date Admission Date: October 23, 2025 Subjective No prior history of strokes or heart attacks. No fever or chills. Wound currently dressed. Nasal congestion present. Prior surgery with Achilles tendon repair - 6 years ago, no issues with anesthesia at that time. Physical Exam Respiratory: normal respiratory effort, lungs clear to auscultation Cardiovascular: RRR, no murmur, no edema Results & Data Results & Data Vital Signs (Past 12 Hours) Vital Signs Temp Pulse Resp BP Pulse Ox O2 Del Method 10/24/25 16:15 36.6 C 72 18 149/101 H 99 Room Air 10/24/25 14:34 80 18 143/99 H 99 Room Air 10/24/25 14:00 83 18 149/101 H 99 Room Air 10/24/25 10:00 84 18 133/88 100 Room Air 10/24/25 07:27 97 H 20 108/89 95 Room Air 10/24/25 05:43 70 16 132/82 96 Room Air PG Care Time/CCT Total # of Minutes Spent Total Time Spent with Patient: Total time spent is greater than 50% in coordination of care (as documented) at patient's floor/unit and/or counseling patient: Coding Level of Care Code 10673 SUB INP/OBS CARE 2/35MIN Diagnoses Osteomyelitis of great toe of right foot M86.9 Permanent atrial fibrillation I48.21 Atrial fibrillation type: permanent Anticoagulant long-term use Z79.01 COVID-19 virus infection U07.1 (2) Atrial fibrillation Atrial fibrillation type: permanent Qualified Code(s): I48.21 - Permanent atrial fibrillation
[2025-10-24] MEDS: CYANOCOBALAMIN (B-12) 500 MCG TABLET PO SCH (20:15)
[2025-10-25] MEDS: VANCOMYCIN LEVEL ONE (08:31)
[2025-10-25 08:45] LABS: Hematocrit (blood only) 35.6 % (42.0-52.0); Hemoglobin 12.2 g/dL (14.0-18.0); Immature Granulocytes # (auto) 0.04 K/uL (0.01-0.20); Immature Granulocytes % (auto) 0.8 %; Mean Corpuscular Hemoglobin 31.5 pg (25.0-34.0); Mean Corpuscular Volume 92.0 fL (80.0-100.0); Platelet Count 144 K/uL (130-400); RDW Standard Deviation 44.5 fL (36.4-46.3); Red Blood Count 3.87 M/uL (4.70-6.10); White Blood Count 5.23 K/ul (4.8-10.8)
[2025-10-25 09:02] LABS: Anion Gap 6.0 (3-11); Blood Urea Nitrogen 17.0 mg/dl (6-23); Calcium 8.5 mg/dl (8.6-10.3); Carbon Dioxide 25.0 mmol/L (21-32); Chloride 107.0 mmol/L (98-107); Creatinine Clr Calc Pharmacy 99.1 ml/min; Glucose 107.0 mg/dl (70-99(Fasting)); Potassium 3.7 mmol/L (3.5-5.1); Sodium 138.0 mmol/L (136-145)
--- NOTE | 2025-10-25 09:50 | Pharmacy Report ---
Pharmacy PK ABX Note - Date of Service October 25, 2025 - Assessment and Plan Assessment 10/25: Reviewed vancomycin level, predicting therapeutic AUC/SETH, continue current regimen as renal function stable. Repeat trough Wednesday or sooner based on clinical status. Podiatry consulted, planned OR today for amputation. Surface toe culture pending, blood cultures NG x24 hours. 80 year old M receiving vancomycin/zosyn for treatment of great toe osteomyelitis. Pertinent microbiologic data includes: Blood cultures pending. Podiatry consulted and plan for amputation right hallux 10/25/2025 with likely return to the OR 10/29/2025 plan for delayed primary closure of amputation site. Plan Vancomycin * Loading dose: 2250 mg IV x 1 * Maintenance dose: 750 mg IV every 8 hours * Regimen is predicted to achieve target AUC/SETH of 400-600 mg/L.hr * Trough level ordered for 10/29 @ 0730 Pharmacy will continue to follow and will adjust dose/frequency as necessary. Thank you. Pharmacy has transitioned to AUC monitoring for vancomycin. AUC/SETH is the pre ferred PK/PD target and is associated with decreased risk of nephrotoxicity compared to traditional trough targets.
--- NOTE | 2025-10-25 10:49 | Electrocardiogram Report ---
Test Reason : Blood Pressure : */* mmHG Vent. Rate : 73 BPM Atrial Rate : * BPM P-R Int : * ms QRS Dur : 102 ms QT Int : 422 ms P-R-T Axes : * 18 83 degrees QTcB Int : 464 ms Atrial fibrillation Nonspecific T wave abnormality Abnormal ECG When compared with ECG of 26-Jul-2024 10:50, (unconfirmed) Minimal criteria for Inferior infarct are no longer Present Confirmed by Robbie Ackerman ([id number]) on 10/25/2025 10:49:37 AM Referred By: REFERRED SELF Confirmed By: Robbie Ackerman
--- NOTE | 2025-10-25 13:58 | History & Physical Bridge Note ---
Date of Service October 25, 2025 History & Physical Bridge Note I have examined the patient, reviewed the History & Physical and in the interval since the performance of the History & Physical I have noted the following changes of clinical significance: Noninvasive vascular studies and imaging results reviewed. Notes of contributing providers reviewed. Reviewed written informed consent with patient for planned right hallux amputation possible need for delayed primary closure given extent of soft tissue infection. On reevaluation of the hallux today patient has a significant reduction of erythema and edema and may be able to primarily close the amputation site. Reviewed risks and benefits of suggested procedure. Reviewed alternatives and risks and benefits of the alternatives. All questions answered. Written informed consent signed and witnessed.
--- NOTE | 2025-10-25 15:17 | Anesthesiology Consultation ---
Date of Service October 25, 2025 Assessment & Plan Chart Review Chart Review: Acceptable Risk for Surgery and Patient NOT seen in Pre Admission Testing Consults Requested none History Surgery Operation Date: 10/25/25 09:30 Proposed Procedures p Right Hallux Amputation - Nish Deal DPM Height/Weight Height: 6 ft 3 in Weight: 109.2 kg Allergies Allergy/AdvReac Type Severity Reaction Status Date / Time Sulfa (Sulfonamide Allergy Intermediate passed out Verified 10/05/25 08:45 Antibiotics) Medications Home Medications Medication Instructions Recorded Confirmed Last Taken thiamine HCl (vitamin B1) 50 mg 75 mg PO QAM 06/03/21 10/23/25 10/23/25 08:00 tablet nystatin-triamcinolone 100,000 1 applic topical BID PRN Rash #30 03/27/22 10/23/25 Unknown unit/g-0.1 % topical cream grams losartan 100 mg tablet 100 mg PO QPM #90 tabs 03/12/25 10/23/25 10/22/25 20:00 metoprolol tartrate 25 mg tablet 25 mg PO BID #180 tabs 03/12/25 10/23/25 10/23/25 08:00 apixaban 5 mg tablet (Eliquis) 5 mg PO BID #60 tabs 04/26/25 10/23/25 10/23/25 08:00 cyanocobalamin (vitamin B-12) 1,000 mcg PO QPM 10/23/25 10/23/25 10/22/25 20:00 1,000 mcg capsule Active Medications Generic Name Dose Route Start Last Admin Trade Name Freq PRN Reason Stop Dose Admin Acetaminophen 650 mg 10/24/25 00:19 10/24/25 01:13 Acetaminophen 325 Mg Tab PO 11/23/25 00:18 650 mg Q4H PRN Administration Pain or Fever Apixaban 5 mg 10/24/25 09:00 10/24/25 08:09 Apixaban 5 Mg Tablet PO 11/23/25 08:59 5 mg BID ROSANNA Administration Cyanocobalamin 1,000 mcg 10/24/25 21:00 10/24/25 20:15 Cyanocobalamin (B-12) 500 Mcg Tablet PO 11/23/25 20:59 1,000 mcg QPM ROSANNA Administration Vancomycin HCl 750 mg/ Sodium 265 mls @ 200 mls/hr 10/24/25 08:00 10/25/25 10:21 Chloride IV 12/05/25 07:59 Infused Q8H ROSANNA Infusion Piperacillin Sod/Tazobactam Sod 4.5 gm in 100 mls @ 25 mls/hr 10/24/25 04:00 10/25/25 15:15 Zosyn IV 12/05/25 03:59 Infused Q8H ROSANNA Infusion Protocol Metoprolol Tartrate 25 mg 10/24/25 09:00 10/25/25 08:32 Metoprolol Tartrate 25 Mg Tab PO 11/23/25 08:59 25 mg BID ROSANNA Administration Thiamine HCl 75 mg 10/24/25 09:00 10/25/25 08:32 Thiamine Hcl 50 Mg Tablet PO 11/23/25 08:59 75 mg QAM ROSANNA Administration Past Medical History Medical History Cervical radiculopathy CAP (community acquired pneumonia) Hematuria Hx of gout Osteoarthritis History of colon polyps Asthma BPPV (benign paroxysmal positional vertigo) [place] (hard of hearing) Peripheral neuropathy Thiamin deficiency Tubular adenoma of colon Paroxysmal atrial fibrillation Past Family History Family History Sister Liver cancer Father Kidney stones Other No family history of adverse response to anesthesia Denies family history of Ovarian cancer Prostate cancer Myocardial infarction Breast cancer Colorectal cancer Past Surgical History Surgical History History of cataract surgery History of cardioversion (~10/2020) History of Achilles tendon repair History of colonoscopy Social History Smoking Status: Never smoker Do You Dip or Chew Tobacco: No Hx Alcohol Use: No Hx Substance Use: No substance use type: does not use Physical Exam Vital Signs Last Vital Signs Temp 36.6 C 10/25/25 11:37 Pulse 81 10/25/25 11:37 Resp 16 10/25/25 11:37 BP 146/89 H 10/25/25 11:37 Pulse Ox 100 10/25/25 11:37 O2 Del Method Room Air 10/25/25 11:37 Testing Laboratory Results 10/25/25 08:25 10/25/25 08:25 10/24/25 Unknown Gram Stain - Final Toe,Right Great Aerobic and Anaerobic Culture - Preliminary Proteus mirabilis 10/23/25 22:30 Aerobic Blood Culture - Preliminary Blood No growth in Aerobic bottle after 24 hours. Anaerobic Blood Culture - Preliminary No growth in Anaerobic bottle after 24 hours. 10/23/25 22:35 Aerobic Blood Culture - Preliminary Blood No growth in Aerobic bottle after 24 hours. Anaerobic Blood Culture - Preliminary No growth in Anaerobic bottle after 24 hours.
[2025-10-25] MEDS: LACTATED RINGER'S 1,000 ML IV SCH (15:23)
[2025-10-25] MEDS ORDERED: MIDAZOLAM HCL 1 MG/ML 2ML VIAL ONE (15:31)
[2025-10-25] MEDS ORDERED: PROPOFOL IV EMULSION 10 MG/ML 20 ML VIAL IV ONE ×2 (15:31→16:13)
[2025-10-25] MEDS ORDERED: LIDOCAINE 2% 2 ML VIAL/AMP(20MG/ML) INFIL ONE (15:31)
[2025-10-25] MEDS ORDERED: DEXAMETHASONE SOD INJ 4 MG/ML VIAL ONE (15:31)
[2025-10-25] MEDS ORDERED: ONDANSETRON INJ 2 MG/ML 2 ML VIAL ONE (15:31)
[2025-10-25] MEDS ORDERED: ATROPINE SULFATE 0.1 MG/ML 10ML SYR IV PRN (15:36)
[2025-10-25] MEDS ORDERED: ONDANSETRON INJ 2 MG/ML 2 ML VIAL IV PRN (15:36)
--- NOTE | 2025-10-25 15:53 | Operative Report ---
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 Culture bone distal phalanx right hallux 2. pathology proximal margin proximal phalanx right hallux 3. Right great toe for gross pathology Drains None Complications None Indications Osteomyelitis right great toe Description of Procedure Patient brought the operating room placed on the operating table in supine position. Following IV sedation local anesthesia obtained about the patient's right first ray utilizing a total of 10 cc of half percent Marcaine plain in a modified Nogueira block fashion. Timeout is held confirming correct patient, side, site, procedure with all necessary parties confirming. Right lower extremity scrubbed prepped and draped in usual aseptic fashion to the level of well-padded ankle tourniquet. Repeat timeout is completed confirming correct patient, side, site, procedure done necessary parties confirming. Attention was directed to the right hallux which noted to have an ulceration distally which probes to the level of bone of the distal phalanx. A fishmouth shaped incision is planned over the midshaft of the proximal phalanx of the hallux. An incision is created deep to the level of bone of the midshaft of the proximal phalanx. The digit is disarticulated at the interphalangeal joint passed from the operative field. Rongeur is utilized to collect bone ample from the distal phalanx to be sent for culture and sensitivity. Surgical wound is flushed with copious amounts normal sterile saline. Periosteal tissues are freed from the mid diaphysis circumferentially. A sagittal saw was utilized to resect the distal half of the phalanx perpendicular to the long axis of the bone. On the back table sagittal saw was utilized to resect proximal margin from the cut portion of the proximal phalanx sent to pathology. Tourniquet was released at a total tourniquet time of 8 minutes and a prompt hyperemic response was noted to the right foot. All bleeding vessels are cauterized as necessary and direct pressure was held to the toe for further hemostasis. Wound bed is evaluated and noted to be free of any frankly appearing necrotic soft tissue or bone. Wound is flushed with copious amounts normal sterile saline. The long flexor and extensor tendons are reapproximated over the distal cut end of the hallux and sutured in place under physiologic tension with a 3-0 Vicryl suture. Wound edges are reapproximated and closed with a 3-0 nylon suture in simple interrupted suturing technique. Foot is cleansed with normal sterile saline dried and dressed with Betadine soaked Adaptic, 4 x 4 fluff gauze, ABD pad, Kerlix and a lightly applied Todd bandage to hold dressings in place. Patient tolerated the procedure and anesthesia well. He is transferred to recovery room with vital signs stable and vascular status intact all digits of the right foot. Following brief period of postoperative monitoring in recovery room patient is transferred back to the medical surgical floor for ongoing IV antibiotic therapy and medical management. Was initially believed that patient would need to have an open amputation due to the significant erythema and edema of the right hallux on admission however on reevaluation this afternoon patient had significant reduction of erythema and edema to the right great toe and decreased purulent drainage from the distal toe. Intraoperatively I believe were able to reach clean margins distant from the infected abscess and wound as well as the infected bone of the distal phalanx and therefore decision was made to primarily close the wound after flushing with copious amounts of normal sterile saline. Would recommend patient remain in house awaiting intraoperative culture results for antibiotic adjustment prior to discharge. - Remain nonweightbearing for the next 24 hours. Order placed for cam walker. After 24 hours of rest and elevation of the right lower extremity patient is permitted to ambulate as tolerated for short distance and transfer in cam walker. I attest to the content of the Intraoperative Record and any orders documented therein. Any exceptions are noted below.
--- NOTE | 2025-10-25 16:47 | Post Operative Brief Note ---
PG Immediate Post Op with CF Date of Surgery October 25, 2025 Pre & Post Diagnosis Operation Date: 10/25/25 09:30 Osteomyelitis right hallux I identified the patient and participated in the time-out.: Yes Procedure Operation Date: 10/25/25 09:30 Amputation right hallux Surgeon Nish Deal DPM Doctor Of Optometry None Estimated Blood Loss 5 Findings Consistent with Post-Op Diagnosis
--- NOTE | 2025-10-25 17:16 | Anesthesiology Progress Note ---
Date of Service October 25, 2025 Anesthesia Post Procedure Vital Signs Vital Signs: Temp Pulse Pulse Resp BP BP Pulse Ox 10/25/25 17:10 36.6 C 71 18 119/92 99 10/25/25 17:00 71 17 129/94 98 10/25/25 16:54 36.8 C 82 16 127/84 95 10/25/25 15:15 36.7 C 83 20 161/119 H 99 10/25/25 11:37 36.6 C 81 16 146/89 H 100 10/25/25 09:16 10/25/25 08:00 66 10/25/25 07:44 36.3 C L 87 14 131/77 97 10/25/25 03:36 37.0 C 78 16 134/84 99 10/25/25 00:19 10/24/25 21:35 36.6 C 10/24/25 21:17 87 18 153/87 H 99 10/24/25 19:26 36.9 C 88 18 148/89 H 96 Pulse Ox O2 Del Method O2 Del Method 10/25/25 17:10 Room Air 10/25/25 17:00 Room Air 10/25/25 16:54 Room Air 10/25/25 15:15 Room Air 10/25/25 11:37 Room Air 10/25/25 09:16 Room Air 10/25/25 08:00 10/25/25 07:44 Room Air 10/25/25 03:36 Room Air 10/25/25 00:19 98 Room Air 10/24/25 21:35 10/24/25 21:17 Room Air 10/24/25 19:26 Room Air Transfer of Care Handoff Completed per policy Notes Mental Status: alert / awake / arousable and participated in evaluation Patient Amnestic to Procedure: Yes Nausea / Vomiting: adequately controlled Pain: adequately controlled Airway Patency, RR, SpO2: stable & adequate BP & HR: stable & adequate Hydration State: stable & adequate Anesthetic Complications: no major complications apparent
[2025-10-25] MEDS: BUPIVACAINE 0.5 % 5 MG/1 ML MPF 30ML VIAL ONE (17:28)
--- NOTE | 2025-10-25 20:16 | Hospitalist Progress Note ---
Date of Service October 25, 2025 Assessment & Plan (1) Osteomyelitis of great toe of right foot: (2) Atrial fibrillation: (3) Anticoagulant long-term use: (4) COVID-19 virus infection: Plan The patient is a 80-year-old male with a past medical history including atrial fibrillation, long-term anticoagulant use, idiopathic polyneuropathy, prediabetes, obesity, BPH with LUTS, and hypertension. He presents to the emergency department with complaint of swelling and drainage from his right great toe. He has idiopathic polyneuropathy, and thinks he may have bumped his toe 1 to 2 weeks ago. Since that time it was gradually getting worse with increased swelling, and drainage became malodorous. He went to urgent care on 10/23 for assessment of his toe, but also with complaint of URI type symptoms, cough, nasal congestion, chills, nausea and lethargy that have developed over t he past few days. He was then referred to the emergency department at [facility]. Workup in the emergency department includes volume normal laboratories: ESR 40, CRP 6.53, glucose 126, COVID-positive. He is influenza and RSV negative. X-ray of right foot is consistent with a first distal phalanx osteomyelitis. Chest x-ray shows cardiomegaly. From the emergency department patient received vancomycin IV, Zosyn IV and normal saline 500 mL bolus. He was then referred for evaluation for admission to the [facility] hospitalist service. Osteomyelitis of distal phalanx of right great toe/cellulitis of dorsum of right foot- Abnormal x-ray as noted Continue vancomycin IV and Zosyn IV begun in the ED No significant stenosis on arterial doppler Consult podiatry - s/p amputation 10/25 Follow up wound and blood cultures Chronic atrial fibrillation/hypertension On chronic anticoagulation with apixaban - holding for surgery Continue losartan and metoprolol tartrate Lopressor 5 mg IV x 1 given at 5:00 AM Idiopathic polyneuropathy- Continue thiamine Needs to wear appropriate foot protection at all times History of gout- Uric acid level normal COVID-19 Symptomatic but mild symptoms, no treatment required VTE Prophylaxis - Eliquis on hold for operation Disposition - continue on PCU Admission and Anticipated Discharge Date Admission Date: October 23, 2025 Physical Exam Respiratory: normal respiratory effort, lungs clear to auscultation Cardiovascular: RRR, no murmur, no edema Results & Data Results & Data Vital Signs (Past 12 Hours) Vital Signs Temp Pulse Resp BP Pulse Ox O2 Del Method 10/25/25 20:09 36.8 C 92 H 18 126/70 95 Room Air 10/25/25 18:48 37 C 89 20 138/93 100 Room Air 10/25/25 17:25 37.3 C 75 20 137/96 93 Room Air 10/25/25 17:10 36.6 C 71 18 119/92 99 Room Air 10/25/25 17:00 71 17 129/94 98 Room Air 10/25/25 16:54 36.8 C 82 16 127/84 95 Room Air 10/25/25 15:15 36.7 C 83 20 161/119 H 99 Room Air 10/25/25 11:37 36.6 C 81 16 146/89 H 100 Room Air 10/25/25 09:16 Room Air PG Care Time/CCT Total # of Minutes Spent Total Time Spent with Patient: Total time spent is greater than 50% in coordination of care (as documented) at patient's floor/unit and/or counseling patient: Coding Level of Care Code 04955 SUB INP/OBS CARE 2/35MIN Diagnoses Osteomyelitis of great toe of right foot M86.9 Permanent atrial fibrillation I48.21 Atrial fibrillation type: permanent Anticoagulant long-term use Z79.01 COVID-19 virus infection U07.1 (2) Atrial fibrillation Atrial fibrillation type: permanent Qualified Code(s): I48.21 - Permanent atrial fibrillation
[2025-10-26 07:05] LABS: Creatinine Clr Calc Pharmacy 83.0 ml/min
--- NOTE | 2025-10-26 14:39 | Podiatry Progress Note ---
Date of Service October 26, 2025 Assessment & Plan (1) Osteomyelitis of great toe of right foot: (2) Cellulitis of right foot: Plan Postop day 1 status post right hallux amputation - Blood culture 10/23/2025: No growth at 48 hours - Wound culture right hallux collected at bedside 10/24/2025: Proteus Mirabili - pansensitive - Deep tissue culture right hallux intraoperative 10/25/2025: Pending - Proximal margin pathology 10/25/2025: Pending - Continues on IV vancomycin and Zosyn - Fit with cam walker by orthotics department today. Okay to weight-bear as tolerated for short distance and transfer in cam walker to the right foot. - Surgical dressing changed in aseptic fashion with scant sanguinous drainage noted to dressing. Would recommend continued observation as we await intraoperative culture results for appropriate antibiotic adjustment and discharge. Admission and Anticipated Discharge Date Admission Date: October 23, 2025 Subjective Patient seen resting comfortably in hospital bed with foot elevated on 1 pillow. Dressing remains clean dry and intact postop day 1 status post right hallux amputation. Patient's is present in room. Denies nausea, vomiting, fever, chills. Denies pain to the right foot. Review of Systems Review of Systems: Denies vomiting, fever, shortness of breath, chest pain. Reports cough, congestion, chills, nausea and fatigue. Denies pain in the right foot. Physical Exam Physical Exam: Const: Appears well developed and well nourished. No signs of acute distress pr esent. CV: Extremities: No cyanosis Capillary refill time is less than 2 seconds all digits of the bilateral foot. Posterior tibial and dorsalis pedis pulses are palpable bilateral. Neuro: Loss of protective sensation bilateral foot and ankle Psych: Mood/Affect: Mood is normal. Affect is normal. Cognition: Orientation is intact to person, place and time. Focused lower extremity musculoskeletal exam: Postop day 1 status post right hallux amputation. Wound edges well-approximated with all sutures intact. Persistent erythema and edema to the right forefoot and remaining hallux. Scant active sanguinous drainage on dressing change. Results & Data Results & Data Vital Signs (Past 12 Hours) Vital Signs Temp Pulse Resp BP Pulse Ox O2 Del Method 10/26/25 07:58 36.6 C 87 20 135/91 98 Room Air 10/26/25 03:36 36.6 C 81 18 126/81 97 Room Air Coding Level of Care Code 74009 SUB INP/OBS CARE MIN Diagnoses Osteomyelitis of great toe of right foot M86.9 Cellulitis of right foot L03.115
--- NOTE | 2025-10-26 19:39 | Hospitalist Progress Note ---
Date of Service October 26, 2025 Assessment & Plan (1) Osteomyelitis of great toe of right foot: (2) Atrial fibrillation: (3) Anticoagulant long-term use: (4) COVID-19 virus infection: Plan The patient is a 80-year-old male with a past medical history including atrial fibrillation, long-term anticoagulant use, idiopathic polyneuropathy, prediabetes, obesity, BPH with LUTS, and hypertension. He presents to the emergency department with complaint of swelling and drainage from his right great toe. He has idiopathic polyneuropathy, and thinks he may have bumped his toe 1 to 2 weeks ago. Since that time it was gradually getting worse with increased swelling, and drainage became malodorous. He went to urgent care on 10/23 for assessment of his toe, but also with complaint of URI type symptoms, cough, nasal congestion, chills, nausea and lethargy that have developed over t he past few days. He was then referred to the emergency department at [facility]. Workup in the emergency department includes volume normal laboratories: ESR 40, CRP 6.53, glucose 126, COVID-positive. He is influenza and RSV negative. X-ray of right foot is consistent with a first distal phalanx osteomyelitis. Chest x-ray shows cardiomegaly. From the emergency department patient received vancomycin IV, Zosyn IV and normal saline 500 mL bolus. He was then referred for evaluation for admission to the [facility] hospitalist service. Osteomyelitis of distal phalanx of right great toe/cellulitis of dorsum of right foot- Abnormal x-ray as noted Continue vancomycin IV and Zosyn IV begun in the ED - proteus on wound cultures, awaiting surgical cultures to determine home antibiotics at this time No significant stenosis on arterial doppler Appreciate podiatry management - s/p amputation 10/25 Chronic atrial fibrillation/hypertension On chronic anticoagulation with apixaban Continue losartan and metoprolol tartrate Idiopathic polyneuropathy- Continue thiamine Needs to wear appropriate foot protection at all times History of gout- Uric acid level normal COVID-19 Asymptomatic, no treatment required VTE Prophylaxis - restart Eliquis as discussed with Dr Deal Disposition - stable for transfer to med/surg Admission and Anticipated Discharge Date Admission Date: October 23, 2025 Subjective No acute concerns or questions. No chest pain, shortness of breath or cough. Physical Exam Respiratory: normal respiratory effort, lungs clear to auscultation Cardiovascular: RRR, no murmur, no edema Skin: Surgical wound dressing not removed Results & Data Results & Data Vital Signs (Past 12 Hours) Vital Signs Temp Pulse Resp BP Pulse Ox O2 Del Method 10/26/25 16:15 36.4 C L 76 18 121/79 99 Room Air 10/26/25 07:58 36.6 C 87 20 135/91 98 Room Air PG Care Time/CCT Total # of Minutes Spent Total Time Spent with Patient: Total time spent is greater than 50% in coordination of care (as documented) at patient's floor/unit and/or counseling patient: Coding Level of Care Code 44638 SUB INP/OBS CARE 2/35MIN Diagnoses Osteomyelitis of great toe of right foot M86.9 Permanent atrial fibrillation I48.21 Atrial fibrillation type: permanent Anticoagulant long-term use Z79.01 COVID-19 virus infection U07.1 (2) Atrial fibrillation Atrial fibrillation type: permanent Qualified Code(s): I48.21 - Permanent atrial fibrillation
[2025-10-26] MEDS: LOSARTAN POTASSIUM 50 MG TAB PO SCH (21:06)
[2025-10-27 08:18] LABS: Creatinine Clr Calc Pharmacy 85.5 ml/min
--- NOTE | 2025-10-27 09:18 | Hospitalist Progress Note ---
Date of Service October 27, 2025 Assessment & Plan (1) Osteomyelitis of great toe of right foot: Plan: Abnormal x-ray as noted Continue vancomycin IV and Zosyn IV begun in the ED - proteus on wound cultures, awaiting surgical cultures to determine home antibiotics No significant stenosis on arterial doppler Appreciate podiatry management - s/p amputation 10/25 (2) Atrial fibrillation: Plan: On chronic anticoagulation with apixaban Continue losartan and metoprolol tartrate (3) COVID-19 virus infection: Plan: Asymptomatic, no treatment required Plan The patient is a 80-year-old male with a past medical history including atrial fibrillation, long-term anticoagulant use, idiopathic polyneuropathy, prediabetes, obesity, BPH with LUTS, and hypertension. He presents to the emergency department with complaint of swelling and drainage from his right great toe. He has idiopathic polyneuropathy, and thinks he may have bumped his toe 1 to 2 weeks ago. Since that time it was gradually getting worse with increased swelling, and drainage became malodorous. He went to urgent care on 10/23 for assessment of his toe, but also with complaint of URI type symptoms, cough, nasal congestion, chills, nausea and lethargy that have developed over the past few days. He was then referred to the emergency department at [facility]. Workup in the emergency department includes volume normal laboratories: ESR 40, CRP 6.53, glucose 126, COVID-positive. He is influenza and RSV negative. X-ray of right foot is consistent with a first distal phalanx osteomyelitis. Chest x-ray shows cardiomegaly. From the emergency department patient received vancomycin IV, Zosyn IV and normal saline 500 mL bolus. He was then referred for evaluation for admission to the [facility] hospitalist service. VTE Prophylaxis - restart Eliquis as discussed with Dr Deal Admission and Anticipated Discharge Date Admission Date: October 23, 2025 Subjective Pt complaining of right calve pain. Review of Systems Review of Systems: CONST: Negative for fever, body aches and chills. HENT: Negative for neck pain/stiffness, headache, congestion, sore throat, swelling. EYES: Negative for discharge/pain or vision changes. RESP: Negative for cough/hemoptysis and shortness of breath. CV: Negative chest pain, difficulty breathing, palpitations. ABD: Negative pain, nausea, vomiting. : Negative increase frequency, dysuria, blood in urine or stool. MUSC: Negative for muscle aches, edema. SKIN: Negative rash, lesions/sores. NEURO: Negative headache, dizziness, weakness. Physical Exam Physical Exam: GENERAL APPEARANCE NAD, activity normal for age, well developed/ well nourished, no cyanosis, pallor, or diaphoresis. EYES lids/conjunctiva normal. EARS/NOSE/THROAT Mucous membranes moist, nares normal, lips/teeth normal uvula midline without oral pharyngeal erythema, exudate or swelling TMs normal bilaterally. No lymphangitis/lymphedema. HEAD/NECK normocephalic atraumatic, no facial trauma, neck is supple. RESPIRATORY respiratory effort normal, speaks in full sentences, no tripod position, no accessory muscle use. Lungs clear to auscultation without rhonchi, wheezes, rales CARDIAC Regular rate and rhythm, no edema. ABDOMINAL Soft, ND/NT. No evidence of fluid wave. No pulsatile masses on exam, rebound tenderness, Chavez sign or pain over Mcburney's point. MUSCLES/EXTREMITIES No abnormal range of motion, no swelling. Right foot dressing c/d/i SKIN Warm, pink and dry. No rashes, dermatoses, petechiae or lesions. NEUROLOGICAL Speech is clear and appropriate. Normal level of consciousness. Gait and coordination are normal. 5/5 strength in all extremities. PSYCH Normal mood and affect. Judgement/competence is appropriate Results & Data Results & Data Vital Signs (Past 12 Hours) Vital Signs Temp Pulse Resp BP Pulse Ox Pulse Ox O2 Del Method 10/27/25 07:32 37.1 C 97 H 16 142/87 H 100 Room Air 10/27/25 00:00 97 O2 Del Method 10/27/25 07:32 10/27/25 00:00 Room Air PG Care Time/CCT Total # of Minutes Spent Total Time Spent with Patient: Total time spent is greater than 50% in coordination of care (as documented) at patient's floor/unit and/or counseling patient: Coding Level of Care Code 22839 SUB INP/OBS CARE 2/35MIN Diagnoses Osteomyelitis of great toe of right foot M86.9 Permanent atrial fibrillation I48.21 Atrial fibrillation type: permanent COVID-19 virus infection U07.1 (2) Atrial fibrillation Atrial fibrillation type: permanent Qualified Code(s): I48.21 - Permanent atrial fibrillation
--- NOTE | 2025-10-27 09:39 | Ultrasound Report ---
Clinical History: Right foot infection Technique: Venous ultrasound evaluation was performed utilizing grayscale, color Doppler and wave form evaluation. Images were also obtained with and without compression Findings: The right common femoral, superficial femoral, and popliteal veins demonstrate normal anechoic lumens with full compressibility. The calf veins were not well seen Impression: No evidence of right leg deep venous thrombosis Electronically signed by Reinaldo Quintero 10-27-2025 09:38 AM
[2025-10-28 07:03] VITALS: BP 120/74; PULSE 75; RESP 20; TEMP 97.7; O2SAT 94
[2025-10-28 08:00] LABS: Creatinine Clr Calc Pharmacy 85.5 ml/min
--- NOTE | 2025-10-28 09:40 | Discharge Summary ---
Discharge Summary Date of Service October 28, 2025 Principal Dx & Hospital Course #1 = Principal Diagnosis (1) Osteomyelitis of great toe of right foot: Abnormal x-ray as noted Continue vancomycin IV and Zosyn IV begun in the ED - proteus on wound cultures, surgical cultures resulted in pansensitivity- will d/c on cipro 500mg BID for 7 days No significant stenosis on arterial doppler Appreciate podiatry management - s/p amputation 10/25 (2) Atrial fibrillation: On chronic anticoagulation with apixaban Continue losartan and metoprolol tartrate (3) COVID-19 virus infection: Asymptomatic, no treatment required Plan The patient is a 80-year-old male with a past medical history including atrial fibrillation, long-term anticoagulant use, idiopathic polyneuropathy, prediabetes, obesity, BPH with LUTS, and hypertension. He presents to the emergency department with complaint of swelling and drainage from his right great toe. He has idiopathic polyneuropathy, and thinks he may have bumped his toe 1 to 2 weeks ago. Since that time it was gradually getting worse with increased swelling, and drainage became malodorous. He went to urgent care on 10/23 for assessment of his toe, but also with complaint of URI type symptoms, cough, nasal congestion, chills, nausea and lethargy that have developed over the past few days. He was then referred to the emergency department at [facility]. Workup in the emergency department includes volume normal laboratories: ESR 40, CRP 6.53, glucose 126, COVID-positive. He is influenza and RSV negative. X-ray of right foot is consistent with a first distal phalanx osteomyelitis. Chest x-ray shows cardiomegaly. From the emergency department patient received vancomycin IV, Zosyn IV and normal saline 500 mL bolus. He was then referred for evaluation for admission to the [facility] hospitalist service. VTE Prophylaxis - restart Eliquis as discussed with Dr Deal Admission HPI Per Admitting Provider The patient is a 80-year-old male with a past medical history including atrial fibrillation, long-term anticoagulant use, idiopathic polyneuropathy, prediabetes, obesity, BPH with LUTS, and hypertension. He presents to the emergency department with complaint of swelling and drainage from his right great toe. He has idiopathic polyneuropathy, and thinks he may have bumped his toe 1 to 2 weeks ago. Since that time it was gradually getting worse with increased swelling, and drainage became malodorous. He went to urgent care on 10/23 for assessment of his toe, but also with complaint of URI type symptoms, cough, nasal congestion, chills, nausea and lethargy that have developed over the past few days. He was then referred to the emergency department at [facility]. Workup in the emergency department includes volume normal laboratories: ESR 40, CRP 6.53, glucose 126, COVID-positive. He is influenza and RSV negative. X-ray of right foot is consistent with a first distal phalanx osteomyelitis. Chest x-ray shows cardiomegaly. From the emergency department patient received vancomycin IV, Zosyn IV and normal saline 500 mL bolus. He was then referred for evaluation for admission to the [facility] hospitalist service. Discharge Exam GENERAL APPEARANCE NAD, activity normal for age, well developed/ well nourished, no cyanosis, pallor, or diaphoresis. EYES lids/conjunctiva normal. EARS/NOSE/THROAT Mucous membranes moist, nares normal, lips/teeth normal uvula midline without oral pharyngeal erythema, exudate or swelling TMs normal bilaterally. No lymphangitis/lymphedema. HEAD/NECK normocephalic atraumatic, no facial trauma, neck is supple. RESPIRATORY respiratory effort normal, speaks in full sentences, no tripod position, no accessory muscle use. Lungs clear to auscultation without rhonchi, wheezes, rales CARDIAC Regular rate and rhythm, no edema. ABDOMINAL Soft, ND/NT. No evidence of fluid wave. No pulsatile masses on exam, rebound tenderness, Chavez sign or pain over Mcburney's point. MUSCLES/EXTREMITIES No abnormal range of motion, no swelling. Right foot dressing c/d/i SKIN Warm, pink and dry. No rashes, dermatoses, petechiae or lesions. NEUROLOGICAL Speech is clear and appropriate. Normal level of consciousness. Gait and coordination are normal. 5/5 strength in all extremities. PSYCH Normal mood and affect. Judgement/competence is appropriate Discharge Plan Discharge Items Patient Disposition: Home - Self-Care Reason For Visit: RIGHT GREAT TOE OSTEO, COVID, A-FIB Discharge Diagnosis: Right great toe osteomylitis Condition on Discharge: Fair Activity: Resume your previous activity Non-emergency contact: Primary Care Provider Call non-emergency contact if: you have any medication questions Follow-up/Referrals: Joe Young, [Primary Care Provider] - Diet: Regular Addtl Attending Provider Instructions: Follow up with podiatry in 1 week Pending Studies at Discharge: No Stand-Alone Forms: My [facility], Smoking Cessation Medications and DC Order Prescriptions: New ciprofloxacin HCl [Cipro] 500 mg tablet 500 mg PO Q12H Qty: 14 0RF Continued thiamine HCl (vitamin B1) 50 mg tablet 75 mg PO QAM metoprolol tartrate 25 mg tablet 25 mg PO BID Qty: 180 3RF losartan 100 mg tablet 100 mg PO QPM Qty: 90 3RF nystatin-triamcinolone 100,000-0.1 unit/g-% cream 1 applic topical BID PRN (Reason: Rash) Qty: 30 0RF Eliquis 5 mg tablet 5 mg PO BID Qty: 60 5RF cyanocobalamin (vitamin B-12) 1,000 mcg capsule 1,000 mcg PO QPM Discharge Orders: Discharge Order (Routine); Ordered 10/28/25 Ordered By: Jose Schulte Admission Data Admit Date/Time: 10/23/25 23:46 Attending Provider: Jose Schulte Admit Provider: Mickey Dickey Primary Care Provider: Joe Young Other Providers: José Epstein; Mickey Dickey Hospital Stay Data Consultations 10/23/25 22:46 ED Decision to Admit Stat 10/23/25 23:51 Consult Podiatry Routine 10/23/25 23:58 Consult Podiatry Routine Procedures Performed Operation Date: 10/25/25 09:30 Actual Procedures p Right Hallux Amputation(Right) - Nish Deal DPM Diagnostic Imagining Performed 10/24/25 05:35 US arterial duplex LE BI Routine 10/24/25 05:38 US venous doppler LE RT Urgent 10/27/25 07:28 US venous doppler LE RT Urgent Pending Results Patient Have Any Pending Studies at Discharge: No Discharge Instructions Given to Patient (Per Discharging Provider) Follow up with podiatry in 1 week Total Time Total Time Spent Total Time Spent (In Minutes): 50 Coding Level of Care Code 03143 INP/OBS DISCH >30 MIN Diagnoses Osteomyelitis of great toe of right foot M86.9 Permanent atrial fibrillation I48.21 Atrial fibrillation type: permanent COVID-19 virus infection U07.1
== END 2025-10-28 12:42 | disposition home or self-care (01) | DRG 503 ==
LOC: ED 20:35 → SUATTDRO 23:46 → EDINP 23:46 → 2S 10-24 21:07